=== PATIENT | female | born 1945 | race Caucasian/White ===

== ENCOUNTER 2022-08-25 18:22 | Emergency (ER) | payer OTHER ==
[~2022-08-25] VITALS: Ht 157.5 cm; Wt 56.7 kg
[2022-08-25] MEDS ORDERED: TOPROL XL50 M1 PO (18:26)
[2022-08-25] MEDS ORDERED: LISINOPRIL20 MG PO (18:26)
[2022-08-25] MEDS ORDERED: LIPITOR40 M1 PO (18:27)
[2022-08-25] MEDS ORDERED: AMLODIPINE-OLM1 EACH PO (18:27)
[2022-08-25] MEDS ORDERED: OMEPRAZOLE40 MG PO (18:27)
[2022-08-25] MEDS ORDERED: PLAVIX75 MG PO (18:28)
[2022-08-25] MEDS ORDERED: ECOTRIN81 MG PO (18:28)
== END 2022-08-25 21:20 | disposition home or self-care (01) ==
LOC: ER 18:22
DX: R00.2 Palpitations (principal); I10 Essential (primary) hypertension; Z20.822 Contact with and (suspected) exposure to COVID-19